=== PATIENT | female | born 1950 | race Caucasian/White ===

== ENCOUNTER → 2016-12-13 | Outpatient (CLI) | payer BC ==
[~2016-12-13] MED LIST: ACIDOPHILUS PO; ALLERGY RELIEF4 MG PO; ASPIRIN E.C. 8181 MG PO; CALCIUM 600600 M2 PO; CINNAMON500 MG PO; GLUCOSAMINE CHO1 CAP PO; HYDRODIURIL50 MG PO; OMEGA 31000 MG PO; PEPCID 20MG TAB20 MG PO; SINGULAIR 110 MG/TAB PO; TYLENOL 500MG500 MG PO; VITAMIN B12500 MCG PO; ZOCOR 10MG10 MG PO
== END ==
LOC: MC.RAD 12-11 14:00
DX: Z12.31 Encounter for screening mammogram for malignant neoplasm of breast (principal)

== ENCOUNTER 2017-02-02 13:45 | Outpatient (RCR) | payer BC | END 2017-02-05 13:00 | disposition home or self-care (01) | LOC: MKS.ESL.PT 13:45 | DX: M51.35 Other intervertebral disc degeneration, thoracolumbar region (principal) | CPT/HCPCS: G0283-GP ==

== ENCOUNTER → 2018-02-14 | Outpatient (CLI) | payer BC, MEDICARE | LOC: MC.RAD 08:31 | DX: Z12.31 Encounter for screening mammogram for malignant neoplasm of breast (principal) ==

== ENCOUNTER → 2019-04-16 | Outpatient (CLI) | payer MEDICARE, BC | LOC: MC.RAD 13:40 | DX: Z12.31 Encounter for screening mammogram for malignant neoplasm of breast (principal) ==

== ENCOUNTER → 2020-06-01 | Outpatient (CLI) | payer MEDICARE, BC | LOC: COL.RAD 12:00 | DX: R22.32 Localized swelling, mass and lump, left upper limb (principal) ==

== ENCOUNTER → 2020-06-03 | Outpatient (CLI) | payer MEDICARE, BC | LOC: MC.RAD 15:12 | DX: Z12.31 Encounter for screening mammogram for malignant neoplasm of breast (principal) ==

== ENCOUNTER → 2020-07-07 | Outpatient (CLI) | payer MEDICARE, BC | LOC: COL.RAD 06-17 14:00 | DX: Z01.812 Encounter for preprocedural laboratory examination (principal); D17.9 Benign lipomatous neoplasm, unspecified; M19.012 Primary osteoarthritis, left shoulder; M75.112 Incomplete rotator cuff tear or rupture of left shoulder, not specified as traumatic | CPT/HCPCS: A9585 ==

== ENCOUNTER → 2022-02-06 | Outpatient (CLI) | payer MEDICARE, BC | LOC: MC.RAD 10:21 | DX: Z12.31 Encounter for screening mammogram for malignant neoplasm of breast (principal) ==

== ENCOUNTER → 2024-03-20 | Outpatient (CLI) | payer MEDICARE, BC | LOC: MC.RAD 12:52 | DX: Z12.31 Encounter for screening mammogram for malignant neoplasm of breast (principal) ==